=== PATIENT | female | born 1985 | race African-American/Black ===

== ENCOUNTER 2018-03-14 17:02 | Emergency (ER) | payer MEDICAID ==
[~2018-03-14] VITALS: Ht 172.7 cm; Wt 72.0 kg
[2018-03-14 17:14] VITALS: BP 123/80
== END 2018-03-14 18:00 | disposition left against medical advice (07) ==
LOC: ER 17:38
DX: Z53.21 Procedure and treatment not carried out due to patient leaving prior to being seen by health care provider (principal)